=== PATIENT | female | born 1960 | race Caucasian/White ===

== ENCOUNTER 2018-01-06 09:01 | Emergency (ER) | payer SELFPAY ==
[~2018-01-06] VITALS: Ht 160 cm; Wt 91.0 kg
[2018-01-06] MEDS ORDERED: NORCO 5/3251 TABLET PO (11:18)
[2018-01-06] MEDS ORDERED: NAPROSYN500 MG PO (11:18)
[2018-01-06 11:32] VITALS: BP 145/87
== END 2018-01-06 11:34 | disposition home or self-care (01) ==
LOC: EME 09:01
DX: S83.91XA Sprain of unspecified site of right knee, initial encounter (principal); S20.219A Contusion of unspecified front wall of thorax, initial encounter; M25.511 Pain in right shoulder; S80.211A Abrasion, right knee, initial encounter; W01.0XXA Fall on same level from slipping, tripping and stumbling without subsequent striking against object, initial encounter; F17.200 Nicotine dependence, unspecified, uncomplicated
CPT/HCPCS: 71046; 73564; 99281; 99284